=== PATIENT | male | born 1960 | race Caucasian/White ===

== ENCOUNTER → 2022-03-28 07:34 | Outpatient (CLI) | payer OTHER, SELFPAY ==
--- NOTE | ~2022-03-28 | XR_ITS ---
XR cervical spine 4-5V DATE: 03/28/2022 08:13 INDICATION: Cervical disc degeneration TECHNIQUE: AP, open-mouth, lateral and swimmer views COMPARISON: None FINDINGS: Multiple surgical clips are noted in the soft tissues of the right neck. Mild levoscoliosis of the cervical and upper thoracic spine. Status post anterior and interbody surgical fusion at C5-6. Mild degenerative disease at C4-5 and C6-7. C1 and C2 are normally aligned and the odontoid process is intact. No fracture or dislocation or lock ed facet or prevertebral soft tissue swelling. IMPRESSION: Status post anterior and interbody spinal fusion at C5-6 Mild degenerative disc disease at C4-5 and C6-7 Reviewed, dictated and finalized at location B.
== END ==
PROVIDERS: PCP Family Medicine; Visit Provider Family Medicine
DX: M50.30 Other cervical disc degeneration, unspecified cervical region (principal); Z98.1 Arthrodesis status; M50.321 Other cervical disc degeneration at C4-C5 level
CPT/HCPCS: 72050